=== PATIENT | female | born 2000 | race Caucasian/White ===

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

== ENCOUNTER 2023-06-29 13:22 | Emergency (ER) | payer BC ==
[2023-06-29 13:52] VITALS: BP 133/83; PULSE 116; RESP 18; TEMP 97.9; BMI 28.0
[2023-06-29] MEDS ORDERED: ACETAMINOPHEN 500 MG TABLET (FP) PO ONE (13:58)
[2023-06-29] MEDS ORDERED: SODIUM CHLORIDE 0.9% 500 ML INFUS.BAG IV ONE (13:58)
[2023-06-29] MEDS ORDERED: ACETAMINOPHEN 500 MG TABLET (FP) ONE (14:51)
[2023-06-29 15:02] LABS: HEMATOCRIT 37.4 % (32.4-45.2); HEMOGLOBIN 12.9 G/dL (10.7-15.3); MCH 30.3 pg (25.7-33.7); MCHC 34.6 g/dl (32.0-36.0); MEAN CELL VOLUME 87.7 fl (80-96); PLATELET COUNT 192.3 10^3/uL (134-434); RBC 4.27 10^6/uL (3.60-5.2); RDW 13.9 % (11.6-15.6); WHITE BLOOD COUNT 6.6 10^3/uL (4.0-10.8)
[2023-06-29 15:10] LABS: ALBUMIN 4.8 g/dl (3.4-5.0); BILIRUBIN,TOTAL 0.4 mg/dl (0.2-1); BLOOD UREA NITROGEN 9.9 mg/dl (7-18); CALCIUM 9.6 mg/dl (8.5-10.1); CREATININE 0.8 mg/dl (0.6-1.3); POTASSIUM 3.6 mmol/L (3.5-5.1); SGOT/AST 17.4 U/L (15-37); SGPT/ALT 22.4 U/L (7-52); TOT PROT 7.4 g/dl (6.4-8.2)
[2023-06-29 15:33] LABS: PLATELET ESTIMATE ADEQUATE
[2023-06-29 17:40] LABS: HIV INTERPRETATION NEGATIVE (NEGATIVE)
== END 2023-06-29 16:15 | disposition home or self-care (01) ==
LOC: FER 13:22
DX: R50.9 Fever, unspecified (principal); U07.1 COVID-19
CPT/HCPCS: 0241U-QW; 36415; 71046-TC-FY; 80053; 81003; 82930; 84703; 85027; 86308; 86618; 86753; 87070; 87389; 99284-25

== ENCOUNTER 2023-11-20 17:14 | Emergency (ER) | payer BC ==
[2023-11-20 17:57] VITALS: BP 110/85; PULSE 85; RESP 17; TEMP 98.9; BMI 22.8
== END 2023-11-20 18:09 | disposition home or self-care (01) ==
LOC: FER 17:14
DX: R09.89 Other specified symptoms and signs involving the circulatory and respiratory systems (principal); J02.9 Acute pharyngitis, unspecified; M79.10 Myalgia, unspecified site; B34.9 Viral infection, unspecified; Z20.822 Contact with and (suspected) exposure to COVID-19
CPT/HCPCS: 0241U-QW; 82962; 87651; 99283-25

== ENCOUNTER 2023-11-24 13:59 | Emergency (ER) | payer BC ==
[2023-11-24] MEDS ORDERED: DEXAMETHASONE 4 MG TABLET (FP) PO ONE (14:45)
[2023-11-24] MEDS ORDERED: DEXAMETHASONE SOD PHOSPHATE 10 MG/1 ML VIAL ONE (14:52)
[2023-11-24 16:01] VITALS: BP 125/87; PULSE 99; RESP 18; TEMP 98.3; BMI 22.8
== END 2023-11-24 14:57 | disposition home or self-care (01) ==
LOC: FER 13:59
DX: J02.9 Acute pharyngitis, unspecified (principal); B34.9 Viral infection, unspecified; R05.9 Cough, unspecified; H92.01 Otalgia, right ear; H92.02 Otalgia, left ear; H57.89 Other specified disorders of eye and adnexa; R53.81 Other malaise; Z20.822 Contact with and (suspected) exposure to COVID-19
CPT/HCPCS: 0241U-QW; 71046-TC-FY; 99284-25

== ENCOUNTER 2024-01-20 00:35 | Emergency (ER) | payer BC ==
[2024-01-20 00:43] VITALS: BMI 22.1
[2024-01-20] MEDS ORDERED: MAG HYDROX/AL HYDROX/SIMETH 30 ML UNIT-DOSE CUP ONE (01:38)
[2024-01-20] MEDS: MAG HYDROX/AL HYDROX/SIMETH 30 ML UNIT-DOSE CUP PO ONE (01:41)
[2024-01-20] MEDS ORDERED: ACETAMINOPHEN INJECTION 100 ML IVPB ONE (01:41)
[2024-01-20] MEDS ORDERED: FAMOTIDINE 20 MG/50 ML IVPB 20 MG/50 ML MG IVPB ONE (01:43)
[2024-01-20 01:46] LABS: BASO % 0.9 % (0-2.0); EOS % 3.9 % (0-4.5); HEMATOCRIT 35.3 % (32.4-45.2); HEMOGLOBIN 12.4 GM/dL (10.7-15.3); LYMPH % 30.1 % (8-40); MCH 31.3 pg (25.7-33.7); MCHC 35.2 g/dl (32.0-36.0); MEAN CELL VOLUME 88.8 fl (80-96); MEAN PLT VOLUME 9.3 fl (7.5-11.1); MONO % 8.5 % (3.8-10.2); NEUT % 56.6 % (42.8-82.8); PLATELET COUNT 218 10^3/uL (134-434); RBC 3.97 M/mm3 (3.60-5.2); RDW 13.7 % (11.6-15.6)
[2024-01-20] MEDS: ACETAMINOPHEN 1000 MG/100 ML BAG IVPB ONE (01:46)
[2024-01-20] MEDS: FAMOTIDINE 20 MG/50 ML IVPB 20 MG/50 ML MG IVPB ONE (01:54)
[2024-01-20 02:02] LABS: ALBUMIN 4.2 g/dl (3.4-5.0); CALCIUM 9.3 mg/dL (8.5-10.1)
[2024-01-20] MEDS: SODIUM CHLORIDE 0.9% 500 ML INFUS.BAG IV ONE (02:02)
[2024-01-20 02:05] LABS: CREATININE 0.6 mg/dL (0.55-1.3)
[2024-01-20 02:07] LABS: BILIRUBIN,TOTAL 0.3 mg/dL (0.2-1); TOT PROT 7.2 g/dl (6.4-8.2)
[2024-01-20 05:14] VITALS: BP 110/76; PULSE 78; RESP 16; TEMP 98.3
== END 2024-01-20 05:13 | disposition home or self-care (01) ==
LOC: JER 00:35
PROC: 3E033GC Introduction of Other Therapeutic Substance into Peripheral Vein, Percutaneous Approach (ICD-10-PCS; principal; 2024-01-20)
PROC: 3E033NZ Introduction of Analgesics, Hypnotics, Sedatives into Peripheral Vein, Percutaneous Approach (ICD-10-PCS; 2024-01-20)
DX: R10.13 Epigastric pain (principal)
CPT/HCPCS: 36415; 80053; 83690; 84703; 85025; 99284-25; J0131

== ENCOUNTER 2024-07-29 10:33 | Emergency (ER) | payer BC ==
[2024-07-29 10:43] VITALS: BP 114/80; PULSE 91; RESP 18; TEMP 98.6; BMI 23.6
[2024-07-29 11:50] LABS: BASO % 0.4 % (0-2.0); EOS % 1.7 % (0-4.5); HEMOGLOBIN 13.7 GM/dL (10.7-15.3); LYMPH % 14.3 % (8-40); MCH 28.5 pg (25.7-33.7); MCHC 33.5 g/dl (32.0-36.0); MEAN CELL VOLUME 85.2 fl (80-96); MEAN PLT VOLUME 8.9 fl (7.5-11.1); NEUT % 76.6 % (42.8-82.8); PLATELET COUNT 261 10^3/uL (134-434); RBC 4.82 M/mm3 (3.60-5.2); RDW 14.7 % (11.6-15.6); WHITE BLOOD COUNT 11.4 K/mm3 (4.0-10.0)
[2024-07-29 11:51] LABS: PH,URINE 5.5 (5.0-8.0); URINE APPEARANCE CLEAR; URINE BILIRUBIN NEGATIVE (NEGATIVE); URINE COLOR YELLOW; URINE GLUCOSE (UA) NEGATIVE (NEGATIVE); URINE KETONE TRACE (NEGATIVE); URINE LEUK ESTERASE NEGATIVE (NEGATIVE); URINE NITRITE NEGATIVE (NEGATIVE); URINE PROTEIN NEGATIVE (NEGATIVE); URINE UROBILINOGEN 0.2 mg/dL (0.2-1.0)
[2024-07-29 12:02] LABS: POTASSIUM 3.7 mmol/L (3.5-5.1)
[2024-07-29 12:03] LABS: ALBUMIN 4.7 g/dl (3.4-5.0); CALCIUM 9.8 mg/dL (8.5-10.1)
[2024-07-29 12:06] LABS: CREATININE 0.8 mg/dL (0.55-1.3)
[2024-07-29 12:08] LABS: BILIRUBIN,TOTAL 0.2 mg/dL (0.2-1); TOT PROT 8.1 g/dl (6.4-8.2)
[2024-07-29] MEDS ORDERED: IBUPROFEN 600 MG TABLET (FP) PO ONE (13:09)
[2024-07-29] MEDS: IBUPROFEN 600 MG TABLET (FP) PO ONE (13:16)
== END 2024-07-29 13:59 | disposition home or self-care (01) ==
LOC: JER 10:33
DX: K80.20 Calculus of gallbladder without cholecystitis without obstruction (principal); R10.11 Right upper quadrant pain
CPT/HCPCS: 36415; 74019-TC-FY; 76705-TC; 80053; 81003; 83690; 84703; 85025; 87086; 99285-25